=== PATIENT | female | born 1970 | race Caucasian/White ===

== ENCOUNTER 2016-11-03 15:35 | Emergency (ER) | payer SELFPAY ==
[~2016-11-03] VITALS: Ht 167.6 cm; Wt 74.4 kg
[2016-11-03] MEDS ORDERED: SODIUM CHLORIDE FLUSH 10ML SYR IVF ONE (16:00)
[2016-11-03 16:16] LABS: HEMATOCRIT 46.1 % (34.6-47.8); HEMOGLOBIN 15.7 g/dL (11.7-16.4); WHITE BLOOD COUNT 8.7 x10^3/uL (3.4-10)
[2016-11-03 16:20] LABS: ASPARTATE AMINO TRANSFERASE 10 U/L (15-37); BLOOD UREA NITROGEN 15 mg/dL (7-18)
[2016-11-03 16:36] LABS: IS PT STATUS REG ER OR PRE ER? YES
[2016-11-03] MEDS ORDERED: KETOROLAC 30 MG/1 ML IVPush ONE (17:30)
[2016-11-03] MEDS ORDERED: OMNIPAQUE 350 MG/ML, 100ML BOTTLE ONE (17:36)
[2016-11-03] MEDS ORDERED: KETOROLAC 30 MG/1 ML ONE (17:42)
[2016-11-03 17:59] VITALS: BP 108/65
== END 2016-11-03 18:02 | disposition home or self-care (01) ==
LOC: ED 17:56
DX: R07.89 Other chest pain (principal); M25.512 Pain in left shoulder; Z87.891 Personal history of nicotine dependence
CPT/HCPCS: 36415; 71010; 71275; 73030; 80053; 84484; 85025; 93005; 96374; 99285; J1885; Q9967